=== PATIENT | male | born 1990 | race Caucasian/White ===

== ENCOUNTER 2024-07-15 04:48 | Emergency (ER) | payer MEDICAID ==
[~2024-07-15] VITALS: Ht 182.9 cm; Wt 117.9 kg
[2024-07-15 04:49] VITALS: TEMP 99
[2024-07-15 06:46] VITALS: PULSE 100; RESP 18; O2SAT 91
[2024-07-15] MEDS: ipratropium/albuterol 3ml nebule NEB ONE (06:46)
[2024-07-15 06:53] VITALS: PULSE 103; RESP 16; O2SAT 90
[2024-07-15] MEDS ORDERED: ALBU18HF2 INH (06:55)
[2024-07-15] MEDS ORDERED: DOXY100C43 PO (06:55)
[2024-07-15 07:34] VITALS: BP 106/64; PULSE 100; RESP 14; O2SAT 99
== END 2024-07-15 07:37 | disposition home or self-care (01) ==
LOC: ER 04:49
DX: J40 Bronchitis, not specified as acute or chronic (principal); F17.210 Nicotine dependence, cigarettes, uncomplicated; Z79.899 Other long term (current) drug therapy; Z20.822 Contact with and (suspected) exposure to COVID-19
CPT/HCPCS: 36415; 71045; 87811; 93005; 94640; 94760; 99285; A4615